=== PATIENT | female | born 1980 ===

== ENCOUNTER 2020-04-04 12:00 | Inpatient (IN) | payer OTHER ==
[~2020-04-04] VITALS: Ht 160 cm; Wt 78.0 kg
== END 2020-04-14 16:24 | disposition home or self-care (01) | DRG 331 ==
LOC: SURH 04-11 06:05 → O/R 04-11 06:05 → RECOVERY 04-11 07:00 → SURH 04-11 14:17 → SURG 04-11 14:29 → MEDJ 04-11 17:50 → SURH 04-11 18:21 → O/R 04-11 18:23 → SURH 04-11 20:43
PROVIDERS: ADMIT Colon & Rectal Surgery; ATTEND Colon & Rectal Surgery
PROC: 0DBN4ZZ Excision of Sigmoid Colon, Percutaneous Endoscopic Approach (ICD-10-PCS; 2020-04-11)
PROC: 0DJD8ZZ Inspection of Lower Intestinal Tract, Via Natural or Artificial Opening Endoscopic (ICD-10-PCS; 2020-04-11)
PROC: 0DTP4ZZ Resection of Rectum, Percutaneous Endoscopic Approach (ICD-10-PCS; principal; 2020-04-11 07:00)
PROC: 3E0F7SF Introduction of Other Gas into Respiratory Tract, Via Natural or Artificial Opening (ICD-10-PCS; 2020-04-12)
DX: K57.30 Diverticulosis of large intestine without perforation or abscess without bleeding (principal); J45.20 Mild intermittent asthma, uncomplicated